=== PATIENT | male | born 1995 | race Two or more races ===

== ENCOUNTER 2017-09-08 12:46 | Emergency (ER) | payer OTHER, MEDICAID ==
[~2017-09-08] VITALS: Ht 177.8 cm; Wt 82.5 kg
[2017-09-08 14:48] LABS: BASOPHILS % 0.7 % (0.0-2.0); EOSINOPHILS % 3.3 % (0.0-5.0); HEMATOCRIT. 36.1 % (42.0-52.0); HEMOGLOBIN. 11.7 g/dL (14.0-18.0); LYMPHOCYTES % 34.5 % (20.0-50.0); MEAN CORPUSCULAR HEMOGLOBIN 22.9 pg (28.0-32.0); MEAN CORPUSCULAR VOLUME 70.9 fL (80.0-94.0); MEAN PLATELET VOLUME 7.6 fl (7.4-10.4); MONOCYTES % 8.5 % (2.0-8.0); PLATELET 287 x1000/uL (130-400); RED BLOOD CELL COUNT 5.09 mill/uL (4.7-6.1)
[2017-09-08 14:52] LABS: CHLORIDE 103 mEq/L (98-107)
[2017-09-08 14:57] LABS: ETHANOL BLOOD < 10 mg/dL
[2017-09-08] MEDS ORDERED: LORAZEPAM 1MG TABLET PO ONE (15:00)
[2017-09-08] MEDS: OLANZAPINE 5MG TABLET ODT PO ONE ×2 (15:00→17:23)
[2017-09-08 15:51] LABS: *AMPHETAMINES SCREEN URINE NEGATIVE (NEGATIVE); *BARBITURATES SCREEN URINE NEGATIVE (NEGATIVE); *BENZODIAZEPINES SCREEN URINE NEGATIVE (NEGATIVE); *COCAINE SCREEN URINE NEGATIVE (NEGATIVE); CANNABINOID URINE SCREEN PRESUMTIVE POSITIVE (NEGATIVE); PHENCYCLIDINE URINE SCREEN NEGATIVE (NEGATIVE)
[2017-09-08 15:52] LABS: METHADONE URINE SCREEN NEGATIVE (NEGATIVE); OPIATES URINE SCREEN NEGATIVE (NEGATIVE)
[2017-09-08] MEDS: OLANZAPINE 5MG TABLET ODT PO NR (17:28)
[2017-09-09] MEDS ORDERED: ACETAMINOPHEN WITH CODEINE 300/30MG TABLET PO ONE (21:45)
[2017-09-10 10:30] VITALS: BP 127/76
== END 2017-09-10 12:24 | disposition home or self-care (01) ==
LOC: ER 12:46
DX: R45.851 Suicidal ideations (principal); F43.10 Post-traumatic stress disorder, unspecified; R03.0 Elevated blood-pressure reading, without diagnosis of hypertension
CPT/HCPCS: 36415; 80048; 80305; 80307; 80329; 85025; 99284; G0482